=== PATIENT | male | born 1985 | race Hispanic/Latino ===

== ENCOUNTER 2019-03-03 01:07 | Emergency (ER) | payer OTHER ==
[2019-03-03 01:31] LABS: APPEARANCE,URINE Clear (CLEAR); BILIRUBIN,URINE Negative (NEGATIVE); COLOR,URINE Yellow (YELLOW); GLUCOSE, URINE (UA) Negative (NEGATIVE); KETONES,URINE Negative (NEGATIVE); LEUKOCYTE ESTERASE ,URINE Negative (NEGATIVE); NITRATE,URINE Negative (NEGATIVE); OCCULT BLOOD,URINE Negative (NEGATIVE); PH,URINE 5.5 (5.0-8.0); PROTEIN,URINE Negative (NEGATIVE)
[2019-03-03] MEDS ORDERED: KETOROLAC TROMETHAMINE 30MG/ML ONE (02:25)
[2019-03-03] MEDS ORDERED: CLINDAMYCIN 600 MG/D5% WATER 50 ML IV ONE (02:25)
[2019-03-03 02:30] LABS: BASOPHILS % (AUTO) 0.8 % (0.0-5.0); EOSINOPHILS % (AUTO) 0.9 % (0.0-8.0); HEMATOCRIT 43.2 % (42-54); LYMPHOCYTES % (AUTO) 15.6 % (21.0-51.0); MEAN CORPUSCULAR HEMOGLOBIN 31.4 pg (27.0-33.0); MEAN CORPUSCULAR HGB CONC 35.4 g/dL (32.0-36.0); MEAN CORPUSCULAR VOLUME 88.6 fL (79-99); MONOCYTES % (AUTO) 6.6 % (3.0-13.0); NEUTROPHILS % (AUTO) 76.1 % (40.0-77.0); PLATELET COUNT (AUTO) 238 K/uL (130-400); RED BLOOD CELL COUNT(AUTO) 4.87 MIL/uL (4.50-6.20); RED CELL DISTRIBUTION WIDTH 13.3 % (11.0-15.5)
[2019-03-03 02:44] LABS: CREATININE 0.9 mg/dL (0.5-1.5); POTASSIUM 3.9 mmol/L (3.5-5.1)
== END 2019-03-03 04:16 | disposition home or self-care (01) ==
LOC: EDH 01:07
DX: L03.317 Cellulitis of buttock (principal); R03.0 Elevated blood-pressure reading, without diagnosis of hypertension; R11.2 Nausea with vomiting, unspecified; J45.909 Unspecified asthma, uncomplicated; Z72.0 Tobacco use
CPT/HCPCS: 36415; 80048; 81003; 85025; 96365; 96366; 96375; 99285; J1885; J3490

== ENCOUNTER 2019-05-09 19:25 | Emergency (ER) | payer OTHER | END 2019-05-09 21:04 | disposition home or self-care (01) | LOC: EDH 19:25 | DX: F41.1 Generalized anxiety disorder (principal); R07.89 Other chest pain; L30.4 Erythema intertrigo; J45.909 Unspecified asthma, uncomplicated; Z72.0 Tobacco use | CPT/HCPCS: 36415; 71046; 82550; 84484; 93005 ==

== ENCOUNTER 2019-06-30 13:16 | Emergency (ER) | payer OTHER ==
[2019-06-30] MEDS ORDERED: ONDANSETRON ODT 4 MG TAB ONE (13:48)
[2019-06-30] MEDS ORDERED: DICYCLOMINE HCL 20 MG TAB ONE (13:48)
[2019-06-30 14:01] LABS: BASOPHILS % (AUTO) 0.2 % (0.0-5.0); EOSINOPHILS % (AUTO) 0.5 % (0.0-8.0); HEMATOCRIT 43.1 % (42-54); LYMPHOCYTES % (AUTO) 8.9 % (21.0-51.0); MEAN CORPUSCULAR HEMOGLOBIN 30.3 pg (27.0-33.0); MEAN CORPUSCULAR HGB CONC 34.5 g/dL (32.0-36.0); NEUTROPHILS % (AUTO) 86.4 % (40.0-77.0); NUCLEATED RED BLOOD CELLS 0.1 % (0.0-0.19); PLATELET COUNT (AUTO) 172 K/uL (130-400); RED BLOOD CELL COUNT(AUTO) 4.89 MIL/uL (4.50-6.20); RED CELL DISTRIBUTION WIDTH 13.6 % (11.0-15.5); WHITE BLOOD COUNT (AUTO) 11.3 K/uL (4.8-10.8)
[2019-06-30 14:19] LABS: CREATININE 0.8 mg/dL (0.5-1.5); POTASSIUM 3.6 mmol/L (3.5-5.1)
[2019-06-30 14:23] LABS: ALBUMIN 3.9 g/dL (3.5-5.0); BILIRUBIN,TOTAL 0.4 mg/dL (0.2-1.0); TOTAL PROTEIN, SERUM 7.6 g/dL (6.0-8.3)
[2019-06-30 14:54] LABS: BILIRUBIN,TOTAL 0.4 mg/dL (0.2-1.0); CREATININE 0.8 mg/dL (0.5-1.5); POTASSIUM 3.8 mmol/L (3.5-5.1)
[2019-06-30 14:55] LABS: ALBUMIN 3.9 g/dL (3.5-5.0); TOTAL PROTEIN, SERUM 7.6 g/dL (6.0-8.3)
== END 2019-06-30 15:33 | disposition home or self-care (01) ==
LOC: EDH 13:16
DX: B34.9 Viral infection, unspecified (principal); R19.7 Diarrhea, unspecified; R42 Dizziness and giddiness; J45.909 Unspecified asthma, uncomplicated
CPT/HCPCS: 36415; 80053; 85025

== ENCOUNTER 2021-05-09 15:37 | Emergency (ER) | payer OTHER ==
[~2021-05-09] VITALS: Ht 177.8 cm; Wt 86.2 kg
[2021-05-09 16:27] VITALS: BP 121/100
[2021-05-09 16:28] LABS: BASOPHILS % (AUTO) 0.4 % (0.0-5.0); EOSINOPHILS % (AUTO) 1.4 % (0.0-8.0); HEMATOCRIT 46.4 % (42-54); LYMPHOCYTES % (AUTO) 10.5 % (21.0-51.0); MEAN CORPUSCULAR HEMOGLOBIN 28.8 pg (27.0-33.0); MEAN CORPUSCULAR HGB CONC 33.2 g/dL (32.0-36.0); MEAN CORPUSCULAR VOLUME 86.7 fL (79-99); MONOCYTES % (AUTO) 4.4 % (3.0-13.0); PLATELET COUNT (AUTO) 276 K/uL (130-400); RED BLOOD CELL COUNT(AUTO) 5.35 MIL/uL (4.50-6.20); RED CELL DISTRIBUTION WIDTH 13.4 % (11.0-15.5); WHITE BLOOD COUNT (AUTO) 10.4 K/uL (4.8-10.8)
[2021-05-09 16:41] LABS: APPEARANCE,URINE Clear (CLEAR); BILIRUBIN,URINE Negative (NEGATIVE); COLOR,URINE Dark Yellow (YELLOW); GLUCOSE, URINE (UA) Negative (NEGATIVE); KETONES,URINE Trace mg/dL (NEGATIVE); LEUKOCYTE ESTERASE ,URINE Trace (NEGATIVE); NITRATE,URINE Negative (NEGATIVE); OCCULT BLOOD,URINE Negative (NEGATIVE); PH,URINE 8.5 (5.0-8.0); PROTEIN,URINE Trace mg/dL (NEGATIVE)
[2021-05-09 16:42] LABS: CREATININE 0.9 mg/dL (0.5-1.5); POTASSIUM 3.8 mmol/L (3.5-5.1)
[2021-05-09 16:46] LABS: ALBUMIN 4.2 g/dL (3.5-5.0); BILIRUBIN,TOTAL 0.4 mg/dL (0.2-1.0); TOTAL PROTEIN, SERUM 8.3 g/dL (6.0-8.3)
[2021-05-09 16:50] LABS: BACTERIA,URINE Rare /HPF (None Seen); MUCUS,URINE Many LPF (None Seen); RBC,URINE 0-1 /HPF (0-1); SQUAMOUS EPITHELIAL CELL,UR Rare /HPF (0-2)
[2021-05-09] MEDS ORDERED: IOHEXOL-350 75 ML VIAL IV ONE (17:23)
[2021-05-09 17:55] VITALS: BP 113/61
[2021-05-09] MEDS ORDERED: LEVOFLOXACIN 500 MG/D5W 100 ML 100 ML IV ONE (18:30)
[2021-05-09] MEDS ORDERED: 0.9%NACL 1000ML 1,000 ML IV ONE (19:00)
[2021-05-09] MEDS ORDERED: KETOROLAC 30MG VIAL (30MG/ML) IV ONE (19:00)
[2021-05-09] MEDS ORDERED: CIPR-278 PO (19:30)
[2021-05-09] MEDS ORDERED: IBUP-2070 PO (19:30)
[2021-05-09] MEDS ORDERED: METR-172 PO (19:30)
[2021-05-09] MEDS ORDERED: METRONIDAZOLE 500MG/100ML BAG 100 ML ONE (20:11)
[2021-05-09 20:21] VITALS: BP_SYST 119; BP_SYST 168; BP_DIAS 73; BP_DIAS 87
[2021-05-09] MEDS ORDERED: METRONIDAZOLE 500MG/100ML BAG 100 ML IVPB SCH (22:00)
== END 2021-05-09 21:18 | disposition home or self-care (01) ==
LOC: EDH 15:37
DX: K57.32 Diverticulitis of large intestine without perforation or abscess without bleeding (principal); J45.909 Unspecified asthma, uncomplicated; I10 Essential (primary) hypertension; Z86.16 Personal history of COVID-19; Z79.1 Long term (current) use of non-steroidal anti-inflammatories (NSAID)
CPT/HCPCS: 36415; 74177; 80053; 81001; 83690; 85025; 96365; 96367; 96375; J1885; J1956; J3490; Q9967

== ENCOUNTER 2022-06-08 08:08 | Emergency (ER) | payer OTHER ==
[~2022-06-08] VITALS: Ht 175.3 cm; Wt 88.5 kg
[~2022-06-08 08:08] MED LIST: CIPR-278 PO; IBUP-2070 PO; METR-172 PO
[2022-06-08] MEDS ORDERED: ACETAMINOPHEN 500 MG TABLET PO STA (08:10)
[2022-06-08 08:28] LABS: BASOPHILS % (AUTO) 0.7 % (0.0-5.0); EOSINOPHILS % (AUTO) 2.3 % (0.0-8.0); HEMATOCRIT 41.2 % (42-54); LYMPHOCYTES % (AUTO) 16.5 % (21.0-51.0); MEAN CORPUSCULAR HEMOGLOBIN 29.3 pg (27.0-33.0); MEAN CORPUSCULAR HGB CONC 33.7 g/dL (32.0-36.0); MEAN CORPUSCULAR VOLUME 86.9 fL (79-99); MONOCYTES % (AUTO) 6.1 % (3.0-13.0); NEUTROPHILS % (AUTO) 73.8 % (40.0-77.0); PLATELET COUNT (AUTO) 244 K/uL (130-400); RED BLOOD CELL COUNT(AUTO) 4.74 MIL/uL (4.50-6.20); RED CELL DISTRIBUTION WIDTH 13.2 % (11.0-15.5); WHITE BLOOD COUNT (AUTO) 6.9 K/uL (4.8-10.8)
[2022-06-08] MEDS ORDERED: 0.9%NACL 1000ML 1,000 ML IV ONE (08:30)
[2022-06-08 08:53] LABS: APPEARANCE,URINE CLEAR (CLEAR); BILIRUBIN,URINE NEGATIVE (NEGATIVE); COLOR,URINE YELLOW (YELLOW); GLUCOSE, URINE (UA) NEGATIVE (NEGATIVE); KETONES,URINE NEGATIVE (NEGATIVE); LEUKOCYTE ESTERASE ,URINE NEGATIVE (NEGATIVE); NITRATE,URINE NEGATIVE (NEGATIVE); OCCULT BLOOD,URINE NEGATIVE (NEGATIVE); PROTEIN,URINE NEGATIVE (NEGATIVE); UROBILINOGEN,URINE 0.2 mg/dL (0.2-1.0)
[2022-06-08] MEDS ORDERED: KETOROLAC 30MG VIAL (30MG/ML) ONE (09:09)
[2022-06-08 09:13] LABS: ALBUMIN 3.4 g/dL (3.5-5.0); CREATININE 0.8 mg/dL (0.5-1.5); POTASSIUM 3.6 mmol/L (3.5-5.1); TOTAL PROTEIN, SERUM 6.6 g/dL (6.0-8.3)
[2022-06-08 09:25] LABS: BACTERIA,URINE Rare /HPF (None Seen); RBC,URINE None Seen /HPF (0-1); SQUAMOUS EPITHELIAL CELL,UR Rare /HPF (0-2); WBC,URINE None Seen /HPF (0-1)
[2022-06-08] MEDS ORDERED: KETOROLAC 30MG VIAL (30MG/ML) IVP ONE (09:30)
[2022-06-08 10:37] VITALS: BP 135/81
[2022-06-08] MEDS ORDERED: KETO10TA2 PO (10:40)
[2022-06-08] MEDS ORDERED: AMOX1TAB16 PO (10:40)
== END 2022-06-08 10:50 | disposition home or self-care (01) ==
LOC: EDH 08:08
DX: J32.9 Chronic sinusitis, unspecified (principal); Z20.822 Contact with and (suspected) exposure to COVID-19; J45.909 Unspecified asthma, uncomplicated; F17.200 Nicotine dependence, unspecified, uncomplicated; Z79.1 Long term (current) use of non-steroidal anti-inflammatories (NSAID)
CPT/HCPCS: 99283; 96374; 87635; 96361; 80053; 85025; 87804 ×2; 81001; 36415; C9803; J7030; J1885

== ENCOUNTER 2022-07-18 20:23 | Emergency (ER) | payer OTHER ==
[~2022-07-18] VITALS: Ht 175.3 cm; Wt 88.9 kg
[~2022-07-18 20:23] MED LIST changes: +AMOX1TAB16 PO; +KETO10TA2 PO
[2022-07-18] MEDS ORDERED: 0.9%NACL 1000ML 1,000 ML IV ONE (21:00)
[2022-07-18] MEDS ORDERED: IBUPROFEN 600 MG TABLET PO ONE (21:00)
[2022-07-18] MEDS ORDERED: ACETAMINOPHEN 500 MG TABLET PO ONE (21:00)
[2022-07-18 21:01] LABS: BASOPHILS % (AUTO) 0.5 % (0.0-5.0); EOSINOPHILS % (AUTO) 0.6 % (0.0-8.0); HEMATOCRIT 45.8 % (42-54); LYMPHOCYTES % (AUTO) 3.2 % (21.0-51.0); MEAN CORPUSCULAR HEMOGLOBIN 29.3 pg (27.0-33.0); MEAN CORPUSCULAR HGB CONC 33.6 g/dL (32.0-36.0); MEAN CORPUSCULAR VOLUME 87.2 fL (79-99); MONOCYTES % (AUTO) 6.6 % (3.0-13.0); NEUTROPHILS % (AUTO) 88.6 % (40.0-77.0); PLATELET COUNT (AUTO) 47 K/uL (130-400); RED BLOOD CELL COUNT(AUTO) 5.25 MIL/uL (4.50-6.20); RED CELL DISTRIBUTION WIDTH 14.6 % (11.0-15.5); WHITE BLOOD COUNT (AUTO) 8.8 K/uL (4.8-10.8)
[2022-07-18 21:02] LABS: APPEARANCE,URINE CLEAR (CLEAR); BILIRUBIN,URINE SMALL mg/dL (NEGATIVE); COLOR,URINE YELLOW (YELLOW); GLUCOSE, URINE (UA) NEGATIVE (NEGATIVE); KETONES,URINE NEGATIVE (NEGATIVE); LEUKOCYTE ESTERASE ,URINE NEGATIVE Leu/uL (NEGATIVE); NITRATE,URINE NEGATIVE (NEGATIVE); OCCULT BLOOD,URINE NEGATIVE (NEGATIVE); PH,URINE 8.5 (5.0-8.0); PROTEIN,URINE TRACE mg/dL (NEGATIVE)
[2022-07-18 21:13] LABS: CREATININE 0.9 mg/dL (0.5-1.5); POTASSIUM 3.7 mmol/L (3.5-5.1)
[2022-07-18 21:14] LABS: BACTERIA,URINE Few /HPF (None Seen); MUCUS,URINE Few LPF (None Seen); SQUAMOUS EPITHELIAL CELL,UR Few /HPF (0-2)
[2022-07-18 21:15] LABS: ALBUMIN 3.7 g/dL (3.5-5.0); TOTAL PROTEIN, SERUM 7.3 g/dL (6.0-8.3)
[2022-07-18] MEDS ORDERED: OSELTAMIVIR PHOSPHATE 75 MG CAP PO SCH (22:00)
[2022-07-18] MEDS ORDERED: D-ME1POW16 PO (22:01)
[2022-07-18] MEDS ORDERED: OSEL75 PO (22:01)
[2022-07-18] MEDS ORDERED: IBUP-2071 PO (22:01)
[2022-07-18] MEDS ORDERED: OSELTAMIVIR PHOSPHATE 75 MG CAP ONE (22:05)
[2022-07-18 22:13] VITALS: BP 119/80
== END 2022-07-18 22:18 | disposition home or self-care (01) ==
LOC: EDH 20:23
DX: J10.1 Influenza due to other identified influenza virus with other respiratory manifestations (principal); E86.0 Dehydration; Z20.822 Contact with and (suspected) exposure to COVID-19; J45.909 Unspecified asthma, uncomplicated; F17.200 Nicotine dependence, unspecified, uncomplicated; Z79.1 Long term (current) use of non-steroidal anti-inflammatories (NSAID); Z86.16 Personal history of COVID-19
CPT/HCPCS: 99284; 96360; 71045; 87635; 80053; 85025; 87040 ×2; 87880; 87804 ×2; 83605; 81001; 36415; C9803; J7030

== ENCOUNTER 2022-10-11 16:03 | Emergency (ER) | payer OTHER ==
[~2022-10-11] VITALS: Ht 175.3 cm; Wt 88.5 kg
[~2022-10-11 16:03] MED LIST changes: +D-ME1POW16 PO; +IBUP-2071 PO; +OSEL75 PO
[2022-10-11 18:29] LABS: BASOPHILS % (AUTO) 0.7 % (0.0-5.0); HEMATOCRIT 45.2 % (42-54); LYMPHOCYTES % (AUTO) 8.8 % (21.0-51.0); MEAN CORPUSCULAR HEMOGLOBIN 29.4 pg (27.0-33.0); MEAN CORPUSCULAR HGB CONC 32.5 g/dL (32.0-36.0); MEAN CORPUSCULAR VOLUME 90.4 fL (79-99); MONOCYTES % (AUTO) 5.8 % (3.0-13.0); NEUTROPHILS % (AUTO) 82.3 % (40.0-77.0); PLATELET COUNT (AUTO) 262 K/uL (130-400); RED CELL DISTRIBUTION WIDTH 13.5 % (11.0-15.5); WHITE BLOOD COUNT (AUTO) 10.5 K/uL (4.8-10.8)
[2022-10-11 18:30] LABS: APPEARANCE,URINE CLEAR (CLEAR); BILIRUBIN,URINE NEGATIVE (NEGATIVE); COLOR,URINE LIGHT-YELLOW (YELLOW); GLUCOSE, URINE (UA) NEGATIVE (NEGATIVE); KETONES,URINE NEGATIVE (NEGATIVE); LEUKOCYTE ESTERASE ,URINE NEGATIVE Leu/uL (NEGATIVE); NITRATE,URINE NEGATIVE (NEGATIVE); OCCULT BLOOD,URINE NEGATIVE (NEGATIVE); PH,URINE 5.5 (5.0-8.0); PROTEIN,URINE NEGATIVE (NEGATIVE)
[2022-10-11 18:38] LABS: AMPHET/METH SCREEN,URINE NEGATIVE (NEGATIVE); BARBITURATE SCREEN, URINE NEGATIVE (NEGATIVE); BENZODIAZEPINES SCREEN,URINE NEGATIVE (NEGATIVE); CANNABINOID SCREEN,URINE NEGATIVE (NEGATIVE); COCAINE SCREEN,URINE NEGATIVE (NEGATIVE); OPIATE SCREEN,URINE NEGATIVE (NEGATIVE); PHENCYCLIDINE SCREEN,URINE NEGATIVE (NEGATIVE)
[2022-10-11 18:48] LABS: CREATININE 0.8 mg/dL (0.5-1.5); POTASSIUM 4.1 mmol/L (3.5-5.1)
[2022-10-11 18:57] LABS: MUCUS,URINE RARE LPF (None Seen); RBC,URINE 0-1 /HPF (0-1); SQUAMOUS EPITHELIAL CELL,UR RARE /HPF (0-2); WBC,URINE 0-1 /HPF (0-1)
[2022-10-11 18:58] LABS: ALBUMIN 3.4 g/dL (3.5-5.0); TOTAL PROTEIN, SERUM 6.8 g/dL (6.0-8.3)
[2022-10-11] MEDS ORDERED: PANTOPRAZOLE 40 MG/VIAL IVP ONE (19:00)
[2022-10-11] MEDS ORDERED: OMEP40CA21 PO (20:01)
[2022-10-11 20:04] VITALS: BP 113/70
== END 2022-10-11 20:26 | disposition home or self-care (01) ==
LOC: EDH 16:03
DX: K21.9 Gastro-esophageal reflux disease without esophagitis (principal); R07.89 Other chest pain; J45.909 Unspecified asthma, uncomplicated; Z98.890 Other specified postprocedural states; Z79.899 Other long term (current) drug therapy
CPT/HCPCS: 99285; 96374; 71045; 84484; 80053; 80305; 85025; 36415; 93005; 81001; C9113

== ENCOUNTER 2023-08-07 19:54 | Emergency (ER) | payer OTHER ==
[~2023-08-07] VITALS: Ht 175.3 cm; Wt 86.2 kg
[~2023-08-07 19:54] MED LIST changes: -AMOX1TAB16 PO; -CIPR-278 PO; -D-ME1POW16 PO; -IBUP-2070 PO; -IBUP-2071 PO; -KETO10TA2 PO; -METR-172 PO; +OMEP40CA21 PO; -OSEL75 PO
[2023-08-07 20:04] VITALS: BP 158/96; PULSE 74; RESP 18; O2SAT 98
[2023-08-07] MEDS ORDERED: ACETAMINOPHEN WITH CODEINE 1 TAB TAB PO ONE (20:30)
== END 2023-08-07 22:18 | disposition home or self-care (01) ==
LOC: EDH 19:54
DX: S62.396A Other fracture of fifth metacarpal bone, right hand, initial encounter for closed fracture (principal); J45.909 Unspecified asthma, uncomplicated; F17.200 Nicotine dependence, unspecified, uncomplicated; Z98.890 Other specified postprocedural states; W18.39XA Other fall on same level, initial encounter; Y93.89 Activity, other specified; Y92.89 Other specified places as the place of occurrence of the external cause; Y99.8 Other external cause status
CPT/HCPCS: 29125; 73130

== ENCOUNTER 2025-10-16 19:12 | Emergency (ER) | payer BC ==
[~2025-10-16] VITALS: Ht 172.7 cm; Wt 80.3 kg
--- NOTE | 2025-10-16 20:30 | ERN ---
General Chief Complaint: Lower Extremity Pain/Injury Stated Complaint: C/O PAIN TO LEFT LEG X 2 WKS Time Seen by MD: 19:40 History of Present Illness Initial Comments 50-year-old male history of asthma here for evaluation of left lower extremity pain and swelling. Patient states that he was recently seen at an outside clinic/urgent care where they potentially did a blood test and was concerned for a clot in his left lower extremity. Patient left AMA due to work but presents today with increasing pain and swelling to left lower extremity. No fever no cough no shortness a breath. No vomiting or diarrhea. No medications taken prior to arrival other than hydrocodone x1. Allergies: Coded Allergies: No Known Drug Allergies (Unverified Allergy, Unknown, 03/03/19) Home Meds Active Scripts Omeprazole (Omeprazole) 40 Mg Capsule.dr, 40 MG PO DAILY, #30 CAP Prov:YAN PELAEZ MD 10/11/22 Past Medical History Past Medical History: Asthma Medical History Other: COVID-19 11/2020 Past Surgical History: Other Surgical History Other: LEFT KNEE SX Family History Family History: Negative Social History Social History: Smokers, Drugs, ETOH Musculoskeletal: (+) joint pain, (+) joint swelling Review of Systems: was completed, & the rest were negative. Physical Exam Physical Exam Dictation GENERAL APPEARANCE NAD, activity normal for age, well developed/ well nourished, no cyanosis, pallor, or diaphoresis. EYES lids/conjunctiva normal. EARS/NOSE/THROAT Mucous membranes moist, nares normal, lips/teeth normal uvula midline without oral pharyngeal erythema, exudate or swelling TMs normal bilaterally. No lymphangitis/lymphedema. HEAD/NECK normocephalic atraumatic, no facial trauma, neck is supple. RESPIRATORY respiratory effort normal, speaks in full sentences, no tripod position, no accessory muscle use. Lungs clear to auscultation without rhonchi, wheezes, rales CARDIAC Regular rate and rhythm, no edema. ABDOMINAL Soft, ND/NT. No evidence of fluid wave. No pulsatile masses on exam, rebound tenderness, Eden sign or pain over Mcburney's point. MUSCLES/EXTREMITIES right lower extremity within normal limits. Left lower extremity shows swelling from ankle to mid calf. Mild bruising on anteromedial aspect. SKIN Warm, pink and dry. No rashes, dermatoses, petechiae or lesions. NEUROLOGICAL Speech is clear and appropriate. Normal level of consciousness. Gait and coordination are normal. 5/5 strength in all extremities. PSYCH Normal mood and affect. Judgement/competence is appropriate MDM 40-year-old male here for evaluation of left lower extremity pain and swelling. Denies any trauma. We will get ultrasound and x-ray to rule out pathological injury and/or DVT. Disposition pending results of imaging ED Course Orders Procedure Category Date Status Time Us Venous Doppler US 10/16/25 Taken Unilateral 20:27 Tibia/Fibula 2vws Lt RAD 10/16/25 Taken 20:27 Vital Signs Date Time Temp Pulse Resp B/P (MAP) Pulse Ox O2 Delivery O2 Flow Rate FiO2 10/16/25 20:42 98.2 65 19 105/81 100 Room Air* 0 21 10/16/25 19:14 98.4 78 20 129/66 98 Room Air X-ray read by me shows no acute fracture. Ultrasound shows no acute DVT as per security alarm technician. We will discharge home the patient at this time. Advised on concerning signs and symptoms for which to return to the emergency room. We will have patient follow up with the PCP. DX & DISP Disposition: Discharge Departure Impression: Primary Impression: Contusion of leg, left Condition: Stable Referrals: SELF,REFERRAL (PCP) JOSE DANIEL SALMERON MD Oct 16, 2025 20:30
--- NOTE | 2025-10-16 21:48 | HMCIMG ---
EXAM: CR Left Tibia and Fibula, 2 views. CLINICAL HISTORY: Pain. Injury. COMPARISON: None provided. FINDINGS: No acute fracture or aggressive appearing osseous lesion. Status post ACL reconstruction. Joint spaces are within normal limits. The soft tissues are unremarkable. IMPRESSION: No acute bony abnormality is evident. Status post ACL reconstruction. /[place]
[2025-10-16 21:52] VITALS: BP 110/80; PULSE 62; RESP 19; TEMP 98.2; O2SAT 99
--- NOTE | 2025-10-16 21:52 | HMCIMG ---
EXAMINATION: SPECTRAL DOPPLER ULTRASOUND EXAMINATION OF THE LEFT LOWER EXTREMITY VEINS. CLINICAL HISTORY: Rule out DVT. COMPARISON: None provided. TECHNIQUE: Real-time ultrasound scan of the veins of the left lower extremity with color Doppler flow, spectral waveform analysis, and compression. FINDINGS: DEEP VEINS: The common femoral, superficial femoral, deep femoral, popliteal, and posterior tibial veins are echolucent and compressible. There is normal color Doppler flow throughout. SUPERFICIAL VEINS: The proximal greater saphenous vein is echolucent and compressible. SOFT TISSUES: No popliteal fossa cyst or other abnormalities. IMPRESSION: No deep venous thrombosis was evident in the left lower extremity examination. /[place]
== END 2025-10-16 21:59 | disposition home or self-care (01) ==
LOC: EDH 19:12
DX: S80.12XA Contusion of left lower leg, initial encounter (principal); J45.909 Unspecified asthma, uncomplicated; F17.200 Nicotine dependence, unspecified, uncomplicated; Z79.899 Other long term (current) drug therapy; Z53.29 Procedure and treatment not carried out because of patient's decision for other reasons; Z98.890 Other specified postprocedural states; Z86.16 Personal history of COVID-19; X58.XXXA Exposure to other specified factors, initial encounter; Y93.89 Activity, other specified; Y92.89 Other specified places as the place of occurrence of the external cause; Y99.8 Other external cause status
CPT/HCPCS: 73590; 93971; 99284